=== PATIENT | male | born 1955 | race American Indian/Alaskan Native ===

== ENCOUNTER 2016-12-19 22:33 | Emergency (ER) | payer MEDICARE ==
[2016-12-19 23:05] LABS: Basophils % (Auto) 0.8 % (0.0-1.8); Eosinophils % (Auto) 1.2 % (0.0-4.3); Hematocrit 41.6 % (35.5-45.6); Hemoglobin 13.9 gm/dl (11.8-15.2); Mean Corpuscular HGB Conc 34 % (32-34); Mean Corpuscular Hemoglobin 28 pg (28-32); Mean Corpuscular Volume 85 fl (84-94); Platelet Count 296 K/mm3 (140-440); Red Cell Distribution Width 14.4 % (13.2-15.2); White Blood Count 10.7 K/mm3 (4.5-11.0)
[2016-12-19 23:16] LABS: Calcium 9.2 mg/dL (8.4-10.2); Chloride 103.2 mmol/L (98-107); Potassium 4.6 mmol/L (3.6-5.0)
[2016-12-19] MEDS ORDERED: TYLENOL PO PRN (23:56)
[2016-12-19] MEDS ORDERED: ATIVAN IM PRN (23:56)
[2016-12-19] MEDS ORDERED: HALDOL IM PRN (23:56)
[2016-12-19] MEDS ORDERED: ZOFRAN ODT PO PRN (23:56)
--- NOTE | 2016-12-19 23:57 | Emergency Department Report ---
ED General Adult HPI - General Chief complaint: Psych Stated complaint: SI/HI THOUGHTS Time Seen by Provider: 12/19/16 23:45 Source: patient Mode of arrival: Ambulatory Limitations: No Limitations - History of Present Illness Initial comments: This is a 61-year-old male, presenting to the ER with suicidality. His symptoms are constant. He is not homicidal. He does not have hallucinations, he denies overdose, and denies access to guns and firearms. He has no pain with the exception of chronic right-sided shoulder pain, which has been present for years. The pain is sharp, increases with palpation and range of motion, decreases with rest. No weakness, numbness, ataxia. -: Gradual Severity scale (0 -10): 2 Quality: aching Consistency: intermittent Improves with: rest Worsens with: movement Associated Symptoms: other (suicidality, depression) - Related Data Home Medications Medication Instructions Recorded Confirmed Last Taken Bupropion HCl [buPROPion] 300 mg PO DAILY 12/19/16 12/20/16 1 Day Ago Lisinopril 10 mg PO DAILY 12/19/16 12/20/16 1 Day Ago Allergies Allergy/AdvReac Type Severity Reaction Status Date / Time No Known Allergies Allergy Verified 12/19/16 22:41 ED Review of Systems ROS: Stated complaint: SI/HI THOUGHTS Other details as noted in HPI Constitutional: malaise, weakness ENT: denies: epistaxis Respiratory: denies: cough Cardiovascular: denies: chest pain Gastrointestinal: denies: abdominal pain Genitourinary: denies: dysuria Musculoskeletal: arthralgia, myalgia Skin: denies: lesions Neurological: denies: confusion Psychiatric: depression, suicidal thoughts. denies: homicidal thoughts ED Past Medical Hx - Past Medical History Previous Medical History?: Yes Hx Hypertension: Yes Hx Psychiatric Treatment: Yes (Depression) - Surgical History Past Surgical History?: No - Social History Smoking Status: Never Smoker Substance Use Type: None - Medications Home Medications: Home Medications Medication Instructions Recorded Confirmed Last Taken Type Bupropion HCl [buPROPion] 300 mg PO DAILY 12/19/16 12/20/16 1 Day Ago History Lisinopril 10 mg PO DAILY 12/19/16 12/20/16 1 Day Ago History ED Physical Exam - General Limitations: No Limitations General appearance: alert, in no apparent distress - Head Head exam: Present: atraumatic, normocephalic - Eye Eye exam: Present: normal appearance, PERRL, EOMI, other (visual acuity intact to finger counting, color perception, reading at a close distance). Absent: nystagmus - ENT ENT exam: Present: normal exam, normal orophraynx, mucous membranes moist, normal external ear exam - Neck Neck exam: Present: normal inspection, full ROM. Absent: tenderness, meningismus - Respiratory Respiratory exam: Present: normal lung sounds bilaterally. Absent: respiratory distress, wheezes, rales, rhonchi, stridor, chest wall tenderness, accessory muscle use, decreased breath sounds, prolonged expiratory - Cardiovascular Cardiovascular Exam: Present: regular rate, normal rhythm, normal heart sounds. Absent: bradycardia, tachycardia, irregular rhythm, systolic murmur, diastolic murmur, rubs, gallop - GI/Abdominal GI/Abdominal exam: Present: soft, normal bowel sounds. Absent: distended, tenderness, guarding, rebound, rigid, pulsatile mass - Rectal Rectal exam: Present: deferred - Extremities Exam Extremities exam: Present: normal inspection, full ROM, tenderness (there is reproducible right-sided shoulder tenderness. The compartments are soft. There is full active and passive range of motion of the right shoulder, sensation is intact to the bilateral deltoid, median, radial, ulnar distribution ), normal capillary refill, other (2+ pulses noted in the bilateral upper and lower extremities. Compartments are soft, pelvis is stable, no long bony tenderness). Absent: pedal edema, joint swelling, calf tenderness - Back Exam Back exam: Present: normal inspection, full ROM. Absent: tenderness, CVA tenderness (R), CVA tenderness (L), muscle spasm, paraspinal tenderness, vertebral tenderness - Neurological Exam Neurological exam: Present: alert, oriented X3, normal gait, other (Extraocular movements intact. Tongue midline. No facial droop. Facial sensation intact to light touch in the V1, V2, V3 distribution bilaterally. 5 and 5 strength in 4 extremities.. Sensation is intact to light touch in 4 extremities.). Absent : motor sensory deficit - Psychiatric Psychiatric exam: Present: suicidal ideation - Skin Skin exam: Present: warm, dry, intact, normal color. Absent: rash ED Course Vital Signs 12/19/16 12/20/16 22:45 04:10 Temperature 98.1 F 98.3 F Pulse Rate 77 65 Respiratory 20 16 Rate Blood Pressure 117/72 116/76 [Right] O2 Sat by Pulse 96 96 Oximetry ED Medical Decision Making - Lab Data Result diagrams: 12/19/16 22:46 12/19/16 22:46 Vital Signs 12/19/16 22:45 Temperature 98.1 F Pulse Rate 77 Respiratory 20 Rate Blood Pressure 117/72 [Right] O2 Sat by Pulse 96 Oximetry Lab Results 12/19/16 12/19/16 12/19/16 Range/Units 22:46 22:46 22:46 WBC 10.7 (4.5-11.0) K/mm3 RBC 4.90 (3.65-5.03) M/mm3 Hgb 13.9 (11.8-15.2) gm/dl Hct 41.6 (35.5-45.6) % MCV 85 (84-94) fl MCH 28 (28-32) pg MCHC 34 (32-34) % RDW 14.4 (13.2-15.2) % Plt Count 296 (140-440) K/mm3 Lymph % (Auto) 26.3 (13.4-35.0) % Ector % (Auto) 6.1 (0.0-7.3) % Eos % (Auto) 1.2 (0.0-4.3) % Baso % (Auto) 0.8 (0.0-1.8) % Lymph # 2.8 (1.2-5.4) K/mm3 Ector # 0.7 (0.0-0.8) K/mm3 Eos # 0.1 (0.0-0.4) K/mm3 Baso # 0.1 (0.0-0.1) K/mm3 Seg Neutrophils % 65.6 (40.0-70.0) % Seg Neutrophils # 7.0 (1.8-7.7) K/mm3 Sodium 140 (137-145) mmol/L Potassium 4.6 (3.6-5.0) mmol/L Chloride 103.2 (98-107) mmol/L Carbon Dioxide 22 (22-30) mmol/L Anion Gap 19 mmol/L BUN 15 (9-20) mg/dL Creatinine 1.3 (0.8-1.5) mg/dL Estimated GFR 56 ml/min BUN/Creatinine Ratio 12 % Glucose 152 H (75-100) mg/dL Calcium 9.2 (8.4-10.2) mg/dL Plasma/Serum Alcohol < 0.01 (0-0.07) gm% - Medical Decision Making Differential diagnosis: Suicidality, mood disorder, medical clearance for psychiatric placement, chronic right-sided shoulder pain, arthritis, DJD, Assessment and plan: 61-year-old male with chronic right shoulder pain for years. No neurovascular deficits, no clinical indication of fracture and/or dislocation, this does not present an emergent medical condition, and can be followed up by an outpatient primary care doctor. He is alert and oriented 3, has a GCS of 15, with an anion score of 0, physical exam is unremarkable, patient is placed on a 1013, outpatient medications are continued with the exception of Wellbutrin, at this point in time, there does not appear to be an immediate medical contraindication to psychiatric admission/evaluation and consultation, the crisis he will be involved to further manage the patient. Critical care attestation.: If time is entered above; I have spent that time in minutes in the direct care of this critically ill patient, excluding procedure time. ED Disposition Clinical Impression: Right shoulder pain, Medical clearance for psychiatric admission Disposition: DC/TX-65 PSY HOSP/PSY UNIT Is pt being admited?: No Does the pt Need Aspirin: No Condition: Good
[2016-12-20 01:04] LABS: Urine Drugs of Abuse Note Disclamer
[2016-12-20 01:27] LABS: Bilirubin,Urine NEG (Negative); Blood,Urine NEG (Negative); Ketones,Urine NEG (Negative); Leukocyte Esterase,Urine NEG (Negative); Mucus,Urine 1+ /HPF; Nitrite,Urine NEG (Negative); Protein,Urine <15 mg/dL mg/dL (Negative); RBC,Urine < 1.0 /HPF (0.0-6.0); Urobilinogen,Urine < 2.0 mg/dL (<2.0)
[2016-12-20] MEDS ORDERED: ZESTRIL PO SCH (10:00)
[2016-12-20 10:35] VITALS: BP 99/51
--- NOTE | 2016-12-20 12:22 | Consultation ---
History of Present Illness - Reason for Consult Consult date: 12/20/16 Reason for consult: Mental Health Evaluation Requesting physician: YAHAIRA CHA - Chief Complaint Chief complaint: "I am suicidal" - History of Present Psychiatric Illness This is a 61-year-old AA male presenting to the ER with suicidality. Today patient is calm and cooperative during the assessment. He stated being suicidal because of life stressors (unemployed, illicit drug use, and financial issues). He stated that his main issue is staying off cocaine. He stated that his cocaine addiction has always been a issue for him in his life. He stated over several days his sleep has been erratic because he was "binging" on cocaine. The patient stated, "I have no reason to live." He stated that he attended rehab in the past, but would relapsed once he complete treatment. He does not have a suicide plan and denies prior attempts at suicide. Per the ER note, patient endorse HI's, he denies that now. He denies AVH's, but rate his depression 6/10, with 10 being the worse. He stated feeling withdrawn, sad, and helpless recently because of poor decision making about his life. He denies excessive alcohol consumption (etoh). He stated that he was hospitalized for depression at [facility] in the past. Medications and Allergies Allergies Allergy/AdvReac Type Severity Reaction Status Date / Time No Known Allergies Allergy Verified 12/19/16 22:41 Home Medications Medication Instructions Recorded Confirmed Last Taken Type Bupropion HCl [buPROPion] 300 mg PO DAILY 12/19/16 12/20/16 1 Day Ago History Lisinopril 10 mg PO DAILY 12/19/16 12/20/16 1 Day Ago History Active Meds: Active Medications Acetaminophen (Tylenol) 650 mg PO Q6HR PRN PRN Reason: Pain Haloperidol Lactate (Haldol) 5 mg IM Q6HR PRN PRN Reason: Agitation Lisinopril (Zestril) 10 mg PO DAILY BRIANNE Last Admin: 12/20/16 10:35 Dose: Not Given Lorazepam (Ativan) 2 mg IM Q4HR PRN PRN Reason: Agitation Ondansetron HCl (Zofran Odt) 4 mg PO Q6HR PRN PRN Reason: Nausea Mental Status Exam - Vital signs Last Vital Signs Temp 98.3 F 12/20/16 10:34 Pulse 56 L 12/20/16 10:35 Resp 18 12/20/16 10:34 BP 99/51 12/20/16 10:35 Pulse Ox 97 12/20/16 10:34 - Exam Narrative exam: MSE: Appearance: calm, cooperative Behavior: regular eye contact Speech: regular rate and tone Mood: "depressed" Affect: flat Thought Process: circumstantial Thought Content: denies HI's and VH's Motor Activity: lying in bed Cognition: A/O x3 Insight: variable Judgment: variable Results Result Diagrams: 12/19/16 22:46 12/19/16 22:46 Abnormal lab results 12/19/16 12/19/16 Range/Units 22:46 22:46 Glucose 152 H (75-100) mg/dL Salicylates < 0.3 L (2.8-20.0) mg/dL All other labs normal. Assessment and Plan Assessment and plan: Impression: Historical Dx: Depression. MDD severe type. Alcohol Use DO. Substance Use DO (cocaine). Today patient is calm and cooperative during the assessment. Positive for cocaine DDx: R/O Bipolar DO, Substance Induced Mood DO Recommendation/Plan: Continue 1013 with placement to [facility] today.
== END 2016-12-20 20:54 ==
LOC: ED 22:33 → EEVIPCON 22:33 → ED 12-20 20:54
DX: R45.851 Suicidal ideations (principal); M25.511 Pain in right shoulder; I10 Essential (primary) hypertension; F17.200 Nicotine dependence, unspecified, uncomplicated
CPT/HCPCS: 36415; 80048; 80307; 81001; 82550; 85025; 99285; G0480; 80320

== ENCOUNTER 2017-05-31 22:23 | Emergency (ER) | payer MEDICARE ==
[2017-06-01 00:49] LABS: Basophils # (Auto) 0.1 K/mm3 (0.0-0.1); Eosinophils # (Auto) 0.2 K/mm3 (0.0-0.4); Eosinophils % (Auto) 2.2 % (0.0-4.3); Hemoglobin 13.4 gm/dl (11.8-15.2); Lymphocytes # (Auto) 2.4 K/mm3 (1.2-5.4); Lymphocytes % (Auto) 26.4 % (13.4-35.0); Mean Corpuscular HGB Conc 32 % (32-34); Mean Corpuscular Hemoglobin 28 pg (28-32); Mean Corpuscular Volume 87 fl (84-94); Monocytes # (Auto) 0.7 K/mm3 (0.0-0.8); Monocytes % (Auto) 7.8 % (0.0-7.3); Platelet Count 408 K/mm3 (140-440); Red Blood Count 4.85 M/mm3 (3.65-5.03); Red Cell Distribution Width 15.2 % (13.2-15.2)
[2017-06-01 01:04] LABS: BUN/Creatinine Ratio 10; Blood Urea Nitrogen 11 mg/dL (9-20); Calcium 9.3 mg/dL (8.4-10.2); Hemolysis Index 14
[2017-06-01 02:10] LABS: Bilirubin,Urine NEG (Negative); Blood,Urine NEG (Negative); Color,Urine Straw (Yellow); Protein,Urine <15 mg/dL mg/dL (Negative); Urobilinogen,Urine < 2.0 mg/dL (<2.0)
[2017-06-01 02:14] LABS: Amphetamine Screen,Urine PRESUMPTIVE NEGATIVE; Cannabinoid Screen,Urine PRESUMPTIVE NEGATIVE; Methadone Screen,Urine PRESUMPTIVE NEGATIVE; Opiate Screen,Urine PRESUMPTIVE NEGATIVE
[2017-06-01 02:44] LABS: Benzodiazepines Screen,Urine PRESUMPTIVE POSITIVE; Cocaine Screen,Urine PRESUMPTIVE POSITIVE
[2017-06-01 03:51] VITALS: BP 131/88
--- NOTE | 2017-06-01 04:34 | Emergency Department Report ---
ED Medical Clearance HPI - General Chief complaint: Medical Clearance Stated complaint: MEDICAL CLEARANCE Time Seen by Provider: 06/01/17 02:44 Source: patient Mode of arrival: Ambulatory - History of Present Illness Initial comments: Patient is a 62-year-old Male who is staying at the [facility] after being detoxed [facility]. Patient left today with another resident to go to [facility] and they were gone for several hours in that timeframe the patient in the other resident use cocaine drink alcohol took other pills. Patient was sent here for medical clearance. Patient states he has no complaints except for [place]. He denies any chest pain shortness of breath nausea vomiting fevers chills at this time. Home medications: Home Medications Medication Instructions Recorded Confirmed Last Taken Bupropion HCl [buPROPion] 300 mg PO DAILY 12/19/16 12/20/16 1 Day Ago ~12/19/16 Lisinopril 10 mg PO DAILY 12/19/16 12/20/16 1 Day Ago ~12/19/16 Allergies/Adverse reactions: Allergies Allergy/AdvReac Type Severity Reaction Status Date / Time No Known Allergies Allergy Verified 12/19/16 22:41 ED Review of Systems ROS: Stated complaint: MEDICAL CLEARANCE Other details as noted in HPI Comment: All other systems reviewed and negative ED Past Medical Hx - Past Medical History Previous Medical History?: Yes Hx Hypertension: Yes Hx Psychiatric Treatment: Yes (Depression) Additional medical history: blind R eye - Surgical History Past Surgical History?: No - Social History Smoking Status: Current Every Day Smoker Substance Use Type: Alcohol, Cocaine - Medications Home Medications: Home Medications Medication Instructions Recorded Confirmed Last Taken Type Bupropion HCl [buPROPion] 300 mg PO DAILY 12/19/16 12/20/16 1 Day Ago History ~12/19/16 Lisinopril 10 mg PO DAILY 12/19/16 12/20/16 1 Day Ago History ~12/19/16 ED Physical Exam - General Limitations: No Limitations General appearance: alert, in no apparent distress - Head Head exam: Present: atraumatic, normocephalic - Eye Eye exam: Present: normal appearance - ENT ENT exam: Present: mucous membranes moist - Neck Neck exam: Present: normal inspection - Respiratory Respiratory exam: Present: normal lung sounds bilaterally. Absent: respiratory distress - Cardiovascular Cardiovascular Exam: Present: regular rate, normal rhythm. Absent: systolic murmur, diastolic murmur, rubs, gallop - GI/Abdominal GI/Abdominal exam: Present: soft, normal bowel sounds - Rectal Rectal exam: Present: deferred - Extremities Exam Extremities exam: Present: normal inspection - Back Exam Back exam: Present: normal inspection - Neurological Exam Neurological exam: Present: alert, oriented X3 - Psychiatric Psychiatric exam: Present: normal affect, normal mood - Skin Skin exam: Present: warm, dry, intact, normal color. Absent: rash ED Course Vital Signs 06/01/17 06/01/17 00:18 03:48 Temperature 98.4 F Pulse Rate 120 H 63 Respiratory 18 Rate Blood Pressure 161/100 Blood Pressure 131/88 [Left] O2 Sat by Pulse 98 99 Oximetry ED Medical Decision Making - Lab Data Result diagrams: 06/01/17 00:36 06/01/17 00:36 - Medical Decision Making Patient is medically cleared for return to the [facility] ED Disposition Clinical Impression: Medical clearance for psychiatric admission Disposition: DC-01 TO HOME OR SELFCARE Is pt being admited?: No Does the pt Need Aspirin: No Condition: Stable Additional Instructions: Patient is medically cleared for return to the [facility] Referrals: OZZIE ORNELAS MD [Other] - 3-5 Days
== END 2017-06-01 04:47 | disposition home or self-care (01) ==
LOC: ED 22:23
DX: Z00.8 Encounter for other general examination (principal); F32.9 Major depressive disorder, single episode, unspecified; I10 Essential (primary) hypertension; F17.200 Nicotine dependence, unspecified, uncomplicated; F14.10 Cocaine abuse, uncomplicated
CPT/HCPCS: 36415; 80048; 80307; 81001; 85025; 99283; G0480; 80320

== ENCOUNTER 2018-03-27 11:41 | Emergency (ER) | payer MEDICARE ==
--- NOTE | 2018-03-27 12:04 | Emergency Department Report ---
ED General Adult HPI - General Chief complaint: Pain General Stated complaint: BODY/NECK PAIN Time Seen by Provider: 03/27/18 11:53 Source: patient Mode of arrival: Ambulatory Limitations: No Limitations - History of Present Illness Initial comments: Patient is a 63-year-old male who is here secondary to generalized body aches. Patient states that his lower back is Rosanne been aching for approximately a month and a half and he also has had about 2-3 weeks of neck pain as well. Patient seen here once before for torticollis. Patient states pain in his neck and lower back or dyspnea aching and sometimes he has pain in his arms and legs secondary to his neck and back pain. Patient denies any trauma or falls. Patient states he has not had any fevers chills bowel or bladder dysfunction chest pain or neck stiffness. Patient states the pain in his neck and back are worse when he's trying to stand. - Related Data Home Medications Medication Instructions Recorded Confirmed Last Taken Lisinopril 10 mg PO DAILY 12/19/16 12/20/16 1 Day Ago ~12/19/16 buPROPion HCl [buPROPion] 300 mg PO DAILY 12/19/16 12/20/16 1 Day Ago ~12/19/16 Previous Rx's Medication Instructions Recorded Last Taken Type Ibuprofen [Motrin] 800 mg PO Q8HR PRN #20 tablet 02/04/18 Unknown Rx methOCARBAMOL [Robaxin TAB] 500 mg PO Q6H PRN #15 tablet 02/04/18 Unknown Rx traMADol [Ultram] 50 mg PO Q6HR PRN #12 tablet 02/04/18 Unknown Rx HYDROcodone/APAP 5-325 [[place] 1 each PO Q4HR PRN #12 tablet 03/27/18 Unknown Rx 5/325] methOCARBAMOL [Robaxin TAB] 500 mg PO Q6H PRN #15 tablet 03/27/18 Unknown Rx Allergies Allergy/AdvReac Type Severity Reaction Status Date / Time No Known Allergies Allergy Verified 03/27/18 11:50 ED Review of Systems ROS: Stated complaint: BODY/NECK PAIN Other details as noted in HPI Comment: All other systems reviewed and negative ED Past Medical Hx - Past Medical History Previous Medical History?: Yes Hx Hypertension: Yes Hx Psychiatric Treatment: Yes (Depression) Additional medical history: blind R eye, aortic aneurysm - Surgical History Past Surgical History?: Yes Additional Surgical History: anal abscess, shoulder - Social History Smoking Status: Current Every Day Smoker Substance Use Type: None - Medications Home Medications: Home Medications Medication Instructions Recorded Confirmed Last Taken Type Lisinopril 10 mg PO DAILY 12/19/16 12/20/16 1 Day Ago History ~12/19/16 buPROPion HCl [buPROPion] 300 mg PO DAILY 12/19/16 12/20/16 1 Day Ago History ~12/19/16 Ibuprofen [Motrin] 800 mg PO Q8HR PRN #20 tablet 02/04/18 Unknown Rx methOCARBAMOL [Robaxin TAB] 500 mg PO Q6H PRN #15 tablet 02/04/18 Unknown Rx traMADol [Ultram] 50 mg PO Q6HR PRN #12 tablet 02/04/18 Unknown Rx HYDROcodone/APAP 5-325 [[place] 1 each PO Q4HR PRN #12 tablet 03/27/18 Unknown Rx 5/325] methOCARBAMOL [Robaxin TAB] 500 mg PO Q6H PRN #15 tablet 03/27/18 Unknown Rx ED Physical Exam - General Limitations: No Limitations General appearance: alert, in no apparent distress - Head Head exam: Present: atraumatic, normocephalic - Eye Eye exam: Present: normal appearance - ENT ENT exam: Present: mucous membranes moist - Neck Neck exam: Present: normal inspection - Respiratory Respiratory exam: Present: normal lung sounds bilaterally. Absent: respiratory distress, wheezes, rales, rhonchi - Cardiovascular Cardiovascular Exam: Present: regular rate, normal rhythm. Absent: systolic murmur, diastolic murmur, rubs, gallop - GI/Abdominal GI/Abdominal exam: Present: soft, normal bowel sounds. Absent: distended, tenderness, guarding, rebound - Rectal Rectal exam: Present: deferred - Extremities Exam Extremities exam: Present: normal inspection - Back Exam Back exam: Present: normal inspection - Neurological Exam Neurological exam: Present: alert, oriented X3 - Psychiatric Psychiatric exam: Present: normal affect, normal mood - Skin Skin exam: Present: warm, dry, intact, normal color. Absent: rash ED Course Vital Signs 03/27/18 11:45 Temperature 97.4 F L Pulse Rate 65 Respiratory 16 Rate Blood Pressure 123/97 O2 Sat by Pulse 95 Oximetry ED Medical Decision Making - Medical Decision Making Patient likely with some arthritic pains in his neck and lower back with some secondary radiculopathy. Patient referred to orthopedics. Patient be disch arged home with meds for symptomatically relief. Critical care attestation.: If time is entered above; I have spent that time in minutes in the direct care of this critically ill patient, excluding procedure time. ED Disposition Clinical Impression: Radiculopathy Qualifiers: Spinal region: unspecified Qualified Code(s): M54.10 - Radiculopathy, site unspecified Disposition: TO HOME OR SELFCARE Is pt being admited?: No Does the pt Need Aspirin: No Condition: Stable Instructions: Lumbar Radiculopathy (ED), Cervical Radiculopathy (ED) Referrals: LISA DAVIS MD [Staff Physician] - 3-5 Days Time of Disposition: 12:03
== END 2018-03-27 12:25 | disposition home or self-care (01) ==
LOC: ED 11:41
CPT/HCPCS: 99281

== ENCOUNTER 2018-10-05 10:09 | Inpatient (IN) | payer MEDICARE ==
[2018-10-05 10:58] LABS: Basophils # (Auto) 0.1 K/mm3 (0.0-0.1); Basophils % (Auto) 1.1 % (0.0-1.8); Eosinophils # (Auto) 0.3 K/mm3 (0.0-0.4); Hematocrit 45.6 % (35.5-45.6); Hemoglobin 14.7 gm/dl (11.8-15.2); Lymphocytes # (Auto) 3.6 K/mm3 (1.2-5.4); Lymphocytes % (Auto) 36.6 % (13.4-35.0); Mean Corpuscular HGB Conc 32 % (32-34); Mean Corpuscular Volume 87 fl (84-94); Monocytes # (Auto) 0.9 K/mm3 (0.0-0.8); Monocytes % (Auto) 8.9 % (0.0-7.3); Platelet Count 355 K/mm3 (140-440); Red Blood Count 5.25 M/mm3 (3.65-5.03); Red Cell Distribution Width 14.9 % (13.2-15.2)
[2018-10-05 11:10] LABS: BUN/Creatinine Ratio 12; Blood Urea Nitrogen 16 mg/dL (9-20); Calcium 9.1 mg/dL (8.4-10.2); Hemolysis Index 11
--- NOTE | 2018-10-05 11:12 | XRay Report ---
Examination: Left hand radiograph, 3 views, 10/05/2018 Clinical information: Left hand pain for 3 weeks. No history of trauma Comparison: None. Findings: There is no evidence of acute bony fracture or significant soft tissue swelling of the left hand. Signer Name: Yuly Benavides MD Signed: 10/05/2018 11:08 AM Workstation Name: [id number]
[2018-10-05 11:29] LABS: Free T4 (Free Thyroxine) 1.37 ng/dL (0.76-1.46)
[2018-10-05] MEDS ORDERED: TORADOL IM ONE (11:57)
--- NOTE | 2018-10-05 12:07 | Emergency Department Report ---
ED Extremity Problem HPI - General Chief complaint: Extremity Problem,Nontraumatic Stated complaint: (L) HAND PAIN Time Seen by Provider: 10/05/18 11:47 Source: patient, old records reviewed Mode of arrival: Ambulatory Limitations: No Limitations - History of Present Illness Initial comments: 63-year-old male with a past medical history of hypertension, depression, anxiety, substance abuse, and a thoracic aortic aneurysm presents to the Hospital complaining of pain to fingers of left hand 3 weeks. Pain is constant, aching, worse with palpation and movement related 10/10 in intensity. No alleviating factors reported. No recent trauma, fever, rash, insect bites, redness, or warmth. He denies any other arthralgias or joint pain. Patient was noted to have a heart rate in the 20s and had a EKG shows sinus bradycardia rate 49 with multiple PVCs. He cannot recall his medication list. He states he does have a thoracic aortic aneurysm that is at 4.2 cm monitored by his physicians at [place]. He denies any chest pain, shortness of breath, lightheadedness, or syncope. Currently enrolled at the outpatient psychiatric program at [place] where he is being treated for anxiety and depression. His medical record reveals cocaine abuse. Patient states he has not use any drugs in 2 months. at 2:23 we were finally able to obtain pt's current med list Trazodone 100 mg daily at bedtime Citalopram 20 mg daily Lipitor 10 mg daily Norvasc 5 mg daily pt is not on any beta blockers - Related Data Home Medications Medication Instructions Recorded Confirmed Last Taken AtorvaSTATin [Lipitor] 10 mg PO DAILY 10/05/18 10/05/18 Unknown Citalopram 20 mg PO DAILY 10/05/18 10/05/18 Unknown Norvasc 5 mg PO DAILY 10/05/18 10/05/18 Unknown traZODone 100 mg PO HS 10/05/18 10/05/18 Unknown Allergies Allergy/AdvReac Type Severity Reaction Status Date / Time No Known Allergies Allergy Verified 03/27/18 11:50 ED Review of Systems ROS: Stated complaint: (L) HAND PAIN Other details as noted in HPI Comment: All other systems reviewed and negative ED Past Medical Hx - Past Medical History Previous Medical History?: Yes Hx Hypertension: Yes Hx Psychiatric Treatment: Yes (Depression) Additional medical history: blind R eye, thoracic aortic aneurysm - Surgical History Past Surgical History?: Yes Additional Surgical History: anal abscess, shoulder - Social History Smoking Status: Current Every Day Smoker Substance Use Type: None - Medications Home Medications: Home Medications Medication Instructions Recorded Confirmed Last Taken Type AtorvaSTATin [Lipitor] 10 mg PO DAILY 10/05/18 10/05/18 Unknown History Citalopram 20 mg PO DAILY 10/05/18 10/05/18 Unknown History Norvasc 5 mg PO DAILY 10/05/18 10/05/18 Unknown History traZODone 100 mg PO HS 10/05/18 10/05/18 Unknown History ED Physical Exam - General Limitations: No Limitations - Other Other exam information: General: No limitations, patient is alert in no acute distress Head exam: Atraumatic, normocephalic Eyes exam: Normal appearance ENT: Moist mucous membrane Neck exam: Normal inspection, full range of motion, no meningismus nontender Respiratory exam: Clear to auscultation bilateral, no wheezes, rales, crackles Cardiovascular: Bradycardic regular rhythm Abdomen: Soft, nondistended, and nontender, with normal bowel sounds, no rebound, or guarding Extremity: She doesn't have any significant swelling, deformity, erythema, or warmth to the left hand. He has tenderness to palpation of all his fingers starting at the MTP joint extending distally. His left thumb and palmar hand are not tender to palpation. He has limited flexion of fingers secondary to pain. Back: Normal Inspection, full range of motion, no tenderness Neurologic: Alert, oriented x3, cranial nerves intact, no motor or sensory deficit Psychiatric: normal affect, normal mood Skin: Warm, dry, intact ED Course Vital Signs 10/05/18 10/05/18 10/05/18 10:15 12:15 13:31 Temperature 97.6 F Pulse Rate 28 L 48 L 48 L Respiratory 16 18 17 Rate Blood Pressure 116/53 134/84 146/87 [Right] O2 Sat by Pulse 98 96 97 Oximetry - Consultations Consultation #1: 10/05/18 14:38 case d/w Dr vila cardiology, ekg's reviewed. recommends admission for tele monitoring and will consult. ED Medical Decision Making - Lab Data Result diagrams: 10/05/18 10:39 10/05/18 10:39 Lab Results 07/28/19 07/28/19 07/28/19 Range/Units 10:39 10:39 10:39 WBC 9.8 (4.5-11.0) K/mm3 RBC 5.25 H (3.65-5.03) M/mm3 Hgb 14.7 (11.8-15.2) gm/dl Hct 45.6 (35.5-45.6) % MCV 87 (84-94) fl MCH 28 (28-32) pg MCHC 32 (32-34) % RDW 14.9 (13.2-15.2) % Plt Count 355 (140-440) K/mm3 Lymph % (Auto) 36.6 H (13.4-35.0) % [place] % (Auto) 8.9 H (0.0-7.3) % Eos % (Auto) 3.0 (0.0-4.3) % Baso % (Auto) 1.1 (0.0-1.8) % Lymph # 3.6 (1.2-5.4) K/mm3 [place] # 0.9 H (0.0-0.8) K/mm3 Eos # 0.3 (0.0-0.4) K/mm3 Baso # 0.1 (0.0-0.1) K/mm3 Seg Neutrophils % 50.4 (40.0-70.0) % Seg Neutrophils # 5.0 (1.8-7.7) K/mm3 Sodium 138 (137-145) mmol/L Potassium 5.0 (3.6-5.0) mmol/L Chloride 103.3 (98-107) mmol/L Carbon Dioxide 26 (22-30) mmol/L Anion Gap 14 mmol/L BUN 16 (9-20) mg/dL Creatinine 1.3 (0.8-1.5) mg/dL Estimated GFR > 60 ml/min BUN/Creatinine Ratio 12 % Glucose 107 H (75-100) mg/dL Calcium 9.1 (8.4-10.2) mg/dL Magnesium 2.20 (1.7-2.3) mg/dL Total Creatine Kinase (55-170) units/L Troponin T < 0.010 (0.00-0.029) ng/mL TSH 1.040 (0.270-4.200) mlU/mL Free T4 1.37 (0.76-1.46) ng/dL Urine Opiates Screen Urine Methadone Screen Ur Barbiturates Screen Ur Phencyclidine Scrn Ur Amphetamines Screen U Benzodiazepines Scrn Urine Cocaine Screen U Marijuana (THC) Screen Drugs of Abuse Note 10/05/18 10/05/18 Range/Units 10:39 12:53 WBC (4.5-11.0) K/mm3 RBC (3.65-5.03) M/mm3 Hgb (11.8-15.2) gm/dl Hct (35.5-45.6) % MCV (84-94) fl MCH (28-32) pg MCHC (32-34) % RDW (13.2-15.2) % Plt Count (140-440) K/mm3 Lymph % (Auto) (13.4-35.0) % [place] % (Auto) (0.0-7.3) % Eos % (Auto) (0.0-4.3) % Baso % (Auto) (0.0-1.8) % Lymph # (1.2-5.4) K/mm3 [place] # (0.0-0.8) K/mm3 Eos # (0.0-0.4) K/mm3 Baso # (0.0-0.1) K/mm3 Seg Neutrophils % (40.0-70.0) % Seg Neutrophils # (1.8-7.7) K/mm3 Sodium (137-145) mmol/L Potassium (3.6-5.0) mmol/L Chloride (98-107) mmol/L Carbon Dioxide (22-30) mmol/L Anion Gap mmol/L BUN (9-20) mg/dL Creatinine (0.8-1.5) mg/dL Estimated GFR ml/min BUN/Creatinine Ratio % Glucose (75-100) mg/dL Calcium (8.4-10.2) mg/dL Magnesium (1.7-2.3) mg/dL Total Creatine Kinase 81 (55-170) units/L Troponin T (0.00-0.029) ng/mL TSH (0.270-4.200) mlU/mL Free T4 (0.76-1.46) ng/dL Urine Opiates Screen Presumptive negative Urine Methadone Screen Presumptive negative Ur Barbiturates Screen Presumptive negative Ur Phencyclidine Scrn Presumptive negative Ur Amphetamines Screen Presumptive negative U Benzodiazepines Scrn Presumptive negative Urine Cocaine Screen Presumptive negative U Marijuana (THC) Screen Presumptive negative Drugs of Abuse Note Disclamer - EKG Data -: EKG Interpreted by Me (sinus lu with multiple pvc) EKG shows normal: sinus rhythm, axis (qrs 38), intervals (pr 220), QRS complexes (qrsd 111), ST-T waves (no stemi, PVC) Rate: normal - EKG Data 10/05/18 14:15 repeat ekg at 14:08 shows sinus lu rate 44, pr 251 (1st degree av block with LAD). nostemi. no pvc's on repeat - Radiology Data Radiology results: report reviewed Examination: Left hand radiograph, 3 views, 10/05/2018 Clinical information: Left hand pain for 3 weeks. No history of trauma Comparison: None. Findings: There is no evidence of acute bony fracture or significant soft tissue swelling of the left hand. - Medical Decision Making pt has bradycardia and pvc's on initial ekg. previous hr in the 60's Electrolytes and UDS are normal. Patient has not any beta jessica celexa can cause lu cardia/prolonged qt trazdone can cause prolonged qt Case discussed with social sciences lecturer Patient has ongoing arthralgias of the left hand no Signs of acute infection tx with toradol in ed pt will be admitted for cardiac monitoring - Differential Diagnosis overmedication, substance abuse, arthritis, infection, fracture Critical Care Time: No Critical care attestation.: If time is entered above; I have spent that time in minutes in the direct care of this critically ill patient, excluding procedure time. ED Disposition Clinical Impression: Bradycardia, PVCs (premature ventricular contractions), Left hand pain Disposition: OP ADMIT IP TO THIS HOSP Is pt being admited?: Yes Condition: Stable Time of Disposition: 14:55 (Dr ignacio/hosp)
[2018-10-05 13:12] LABS: Amphetamine Screen,Urine PRESUMPTIVE NEGATIVE; Benzodiazepines Screen,Urine PRESUMPTIVE NEGATIVE; Cannabinoid Screen,Urine PRESUMPTIVE NEGATIVE; Cocaine Screen,Urine PRESUMPTIVE NEGATIVE; Methadone Screen,Urine PRESUMPTIVE NEGATIVE; Opiate Screen,Urine PRESUMPTIVE NEGATIVE
--- NOTE | 2018-10-05 14:57 | History and Physical Report ---
History of Present Illness Chief complaint: My left arm is hurting, and it feels numb sometimes History of present illness: 63 YO Male with HTN, Anxiety, Substance Abuse, TAA (4.2cm) presents to ED for evaluation. Pt states that he has experienced a "tingling pain' and numbness to his LUE over the past 3 weeks, with persistent symptoms over the past 1 week. Pain is now constant, aching, worse with palpation and movement, as well as work related activity. Pt states pain is 10/10 in intensity. Pt transported to [facility] via private vehicle. Pt acknowledges decreased exercise tolerance, and dypsnea with exertion. Pt denies fever, chills, CP, Palpitations, NVD, Syncope, Trauma, Productive cough, dizziness, vertigo, shortness of breath, unilateral leg swelling, calf pain, prolonged travel/immobility, individual/family history of DVT/PE/Bleeding/Blood Clotting Disorders, or recent ill contacts. Pt currently enrolled in [facility] outpatient psychiatric program for treatment of anxiety and depression. Pt seen and evaluated in ED and found to have symptomatic bradycardia with heart rate in the 40's, and well as symptoms suggestive of Diastolic CHF. No prior admission for review. All listed medication reconciled at time of admission. Cardiology consulted in ED. PT admitted to telemetry. Past History Past Medical History: hypertension, hyperlipidemia, other (TAA, Nicotine Dependence, Polysubstance Abuse, Depression, Anxiety) Past Surgical History: Other (Anal Abscess,Shoulder surgery) Social history: , smoking, IV drug use Family history: hypertension Medications and Allergies Allergies Allergy/AdvReac Type Severity Reaction Status Date / Time No Known Allergies Allergy Verified 03/27/18 11:50 Home Medications Medication Instructions Recorded Confirmed Last Taken Type AtorvaSTATin [Lipitor] 10 mg PO DAILY 10/05/18 10/05/18 Unknown History Citalopram 20 mg PO DAILY 10/05/18 10/05/18 Unknown History Norvasc 5 mg PO DAILY 10/05/18 10/05/18 Unknown History traZODone 100 mg PO HS 10/05/18 10/05/18 Unknown History Review of Systems Constitutional: no weight loss, no weight gain, no fever, no chills Ears, nose, mouth and throat: no ear pain, no ear discharge, no tinnitis, no decreased hearing, no nose pain, no nasal congestion Cardiovascular: shortness of breath, dyspnea on exertion, decreased exercise tolerance, no chest pain, no orthopnea, no syncope, no lightheadedness Respiratory: no cough, no cough with sputum, no excessive sputum Gastrointestinal: no nausea, no vomiting, no diarrhea, no constipation, no change in bowel habits Genitourinary Male: no hematuria, no flank pain, no discharge, no urinary frequency, no urinary hesitancy, no genital pain Rectal: no pain, no incontinence, no bleeding Musculoskeletal: neck pain, arm numbness/tingling, no neck stiffness, no shooting arm pain, no low back pain, no shooting leg pain, no hot joints, no morning stiffness, no muscle weakness, no muscle cramps, no frequent falls, no fractures, no loss of height Integumentary: no rash, no pruritis, no redness, no sores, no wounds, no jaundice Neurological: no transient paralysis, no paralysis, no weakness, no parathesias, no tingling, no syncope, no tremors, no ataxia, no lack of coordination Psychiatric: no anxiety, no memory loss, no change in sleep habits, no sleep disturbances, no insomnia, no hypersomnia, no change in appetite, no change in libido Endocrine: no cold intolerance, no heat intolerance, no polyphagia, no excessive thirst, no polydipsia, no polyuria Hematologic/Lymphatic: no easy bruising, no easy bleeding, no lymphedema Allergic/Immunologic: no urticaria, no allergic rhinitis, no wheezing, no persistent infections, no anaphylaxis, no angioedema Exam - Constitutional Vitals: Temp Pulse Resp BP Pulse Ox 97.6 F 48 L 17 146/87 97 10/05/18 10:15 10/05/18 13:31 10/05/18 13:31 10/05/18 13:31 10/05/18 13:31 General appearance: Present: mild distress - EENT Eyes: Present: PERRL ENT: hearing intact, clear oral mucosa - Neck Neck: Present: supple, normal ROM - Respiratory Respiratory effort: normal Respiratory: bilateral: CTA - Cardiovascular Rhythm: other (bradycardia) Heart Sounds: Present: S1 & S2. Absent: rub, click - Extremities Extremities: pulses symmetrical, No edema Peripheral Pulses: within normal limits - Abdominal General gastrointestinal: Present: soft, non-tender, non-distended, normal bowel sounds Male genitourinary: Present: normal - Integumentary Integumentary: Present: clear, warm, dry - Musculoskeletal Musculoskeletal: gait normal, strength equal bilaterally - Psychiatric Psychiatric: appropriate mood/affect, intact judgment & insight - Neurologic Neurologic: CNII-XII intact, moves all extremities Results - Labs CBC & Chem 7: 10/05/18 10:39 10/05/18 10:39 Labs: Abnormal lab results 10/05/18 10/05/18 Range/Units 10:39 10:39 RBC 5.25 H (3.65-5.03) M/mm3 Lymph % (Auto) 36.6 H (13.4-35.0) % [place] % (Auto) 8.9 H (0.0-7.3) % [place] # 0.9 H (0.0-0.8) K/mm3 Glucose 107 H (75-100) mg/dL Assessment and Plan - Patient Problems (1) Diastolic CHF Current Visit: Yes Status: Acute Qualifiers: Heart failure chronicity: acute Qualified Code(s): I50.31 - Acute diastolic (congestive) heart failure Plan to address problem: Admit to telemetry, Echo, thyroid panel, BNP, Magnesium level, blood pressure control, strict I/O, daily weight, chest x ray, supplemental oxygen, pulse oximetry. (2) Sick sinus syndrome Current Visit: Yes Status: Acute Plan to address problem: Admit to telemetry, cardiology consulted, serial cardiac enzymes, Echo, supportive care. (3) Cervical radiculopathy Current Visit: Yes Status: Acute Plan to address problem: X ray neck, Physical therapy, outpatient Ortho F/U care. (4) Thoracic aortic aneurysm (TAA) Current Visit: Yes Status: Acute Qualifiers: Presence of rupture: without rupture Qualified Code(s): I71.2 - Thoracic aortic aneurysm, without rupture Plan to address problem: CTA chest, supportive care, blood pressure control. CTA chest pending at time of admission. (5) Bradycardia Current Visit: Yes Status: Acute Plan to address problem: Admit to telemetry, Atropine at bedside, for symptomatic bradycardia with heart rate less than 45 (6) DVT prophylaxis Current Visit: Yes Status: Acute Plan to address problem: SCD to BLE while in bed,
[2018-10-05] MEDS ORDERED: PROVENTIL IH PRN (15:07)
[2018-10-05] MEDS ORDERED: ZOFRAN IV PRN (15:07)
[2018-10-05] MEDS ORDERED: TYLENOL PO PRN (15:07)
[2018-10-05] MEDS ORDERED: SODIUM CHLORIDE FLUSH SYRINGE 10 ML IV PRN ×2 (15:07)
[2018-10-05] MEDS ORDERED: ATROPINE 0.1% (CARDIAC) IV ONE (16:00)
--- NOTE | 2018-10-05 16:16 | XRay Report ---
CLINICAL DATA: neck pain TECHNICAL DATA: AP, lateral, and odontoid views of the cervical spine were obtained. FINDINGS: Bone density is normal. Intervertebral disc space narrowing with osteophyte formation is present at C 3-4, C4-5, C5-6, and C6-7 . The posterior elements are intact. No evidence of a fracture or disloca tion. IMPRESSION: Degenerative changes as described. MR would be of benefit for further evaluation Signer Name: Young Whipple MD Signed: 10/05/2018 4:12 PM Workstation Name: [id number]
--- NOTE | 2018-10-05 16:43 | Consultation ---
<JUAN ALBERTO CASSIDY - Last Filed: 10/05/18 17:23> History of Present Illness Consult date: 10/05/18 Requesting physician: REINIER MARIE Consult reason: bradycardia History of present illness: Mr. Mohr is a 63 y/o male with a medical history significant for hypertension, depression, anxiety, substance abuse and a thoracic aortic aneurysm who presented to the ED on 10/05/18 from a psychiatric facility with left hand pain x3 weeks. He is previously unknown to our practice. We are consulted for bradycardia, which has thus far been asymptomatic. The patient's heart rate was initially in the 20s and an EKG revealed sinus bradycardia with PVCs and a rate of 49. He received a dose of atropine. He reports that he does experience intermittent asymptomatic bradycardia, but his heart rate normally stays above 50. Additionally, he has been taking Norvasc for hypertension "for a while." He denies CP, SOB, N/V and dizziness, but does have 1+ edema to right leg. An echocardiogram in 2018 at [facility] revealed an EF of 60 to 65 percent, mild concentric LVH, grade 1 diastolic dysfunction, mild TR, mild MR and a mildly dilated LA. The patient also reports a thoracic aortic aneurysm measuring 4.2 cm that is monitored at [place]. Past History Past Medical History: hypertension, other (depression, anxiety and thoracic aortic aneurysm) Past Surgical History: Other (shoulder ) Medications and Allergies Allergies Allergy/AdvReac Type Severity Reaction Status Date / Time lisinopril AdvReac Mild cough Verified 10/05/18 17:31 Home Medications Medication Instructions Recorded Confirmed Last Taken Type AtorvaSTATin [Lipitor] 10 mg PO DAILY 10/05/18 10/05/18 Unknown History Citalopram 20 mg PO DAILY 10/05/18 10/05/18 Unknown History Norvasc 5 mg PO DAILY 10/05/18 10/05/18 Unknown History traZODone 100 mg PO HS 10/05/18 10/05/18 Unknown History Active Meds: Active Medications Acetaminophen (Tylenol) 650 mg PO Q4H PRN PRN Reason: Pain MILD(1-3)/Fever >100.5/RAMIREZ Albuterol (Proventil) 2.5 mg IH Q4HRT PRN PRN Reason: Shortness Of Breath Atorvastatin Calcium (Lipitor) 10 mg PO DAILY [facility]RIANNE Citalopram Hydrobromide (Celexa) 20 mg PO QDAY [facility] Famotidine (Pepcid) 20 mg PO BID [facility] Ondansetron HCl (Zofran) 4 mg IV Q8H PRN PRN Reason: Nausea And Vomiting Sodium Chloride (Sodium Chloride Flush Syringe 10 Ml) 10 ml IV BID BRIANNE Sodium Chloride (Sodium Chloride Flush Syringe 10 Ml) 10 ml IV PRN PRN PRN Reason: LINE FLUSH Sodium Chloride (Sodium Chloride Flush Syringe 10 Ml) 10 ml IV PRN PRN PRN Reason: LINE FLUSH Trazodone HCl (Desyrel) 100 mg PO QHS [facility] Review of Systems All systems: negative Eyes: right: loss of vision (d/t glaucoma) Cardiovascular: edema (right leg ) Physical Examination Last Vital Signs Temp 97.6 F 10/05/18 10:15 Pulse 60 10/05/18 15:25 Resp 18 10/05/18 15:25 BP 146/68 10/05/18 15:25 Pulse Ox 98 10/05/18 15:25 General appearance: no acute distress HEENT: Positive: Other (blind in right eye) Neck: Positive: neck supple Cardiac: Positive: Regular Rhythm, Bradycardia Neuro: Positive: Grossly Intact Abdomen: Positive: Unremarkable Extremities: Present: edema, +1 Edema (RLE) Results 10/05/18 10:39 10/05/18 10:39 CBC 10/05/18 Range/Units 10:39 WBC 9.8 (4.5-11.0) K/mm3 RBC 5.25 H (3.65-5.03) M/mm3 Hgb 14.7 (11.8-15.2) gm/dl Hct 45.6 (35.5-45.6) % Plt Count 355 (140-440) K/mm3 Lymph # 3.6 (1.2-5.4) K/mm3 [place] # 0.9 H (0.0-0.8) K/mm3 Eos # 0.3 (0.0-0.4) K/mm3 Baso # 0.1 (0.0-0.1) K/mm3 Comprehensive Metabolic Panel 10/05/18 Range/Units 10:39 Sodium 138 (137-145) mmol/L Potassium 5.0 (3.6-5.0) mmol/L Chloride 103.3 (98-107) mmol/L Carbon Dioxide 26 (22-30) mmol/L BUN 16 (9-20) mg/dL Creatinine 1.3 (0.8-1.5) mg/dL Glucose 107 H (75-100) mg/dL Calcium 9.1 (8.4-10.2) mg/dL - Imaging and Cardiology Stress echo: other (from 2018 - images not yet reviewed) Echo: report reviewed EKG: report reviewed (Sinus bradycardia with PVCs) EKG interpretations - Telemetry EKG Rhythm: Sinus Bradycardia Assessment and Plan Mr. Streeter is a 63 y/o male who presented to the ED with left hand pain x3 weeks and was noted to be in sinus bradycardia with HRs initially in the 20s. He has a history of reported intermittent bradycardia, hypertension, a thoracic aortic aneurysm of 4.2 cm, depression and anxiety. He has been taking Norvasc for his blood pressure. An echocardiogram is pending. CT to measure thoracic AA pending as well. Will discontinue Norvasc and start hydralazine for hypertension - will avoid ACEi and ARB at this time d/t mildly elevated creatinine. Continue to monitor on telemetry. Further recommendations pending hospital course. - Patient Problems (1) Sinus bradycardia Current Visit: Yes Status: Acute (2) Left hand pain Current Visit: Yes Status: Acute (3) Sick sinus syndrome Current Visit: Yes Status: Suspected (4) Thoracic aortic aneurysm (TAA) Current Visit: Yes Status: Chronic Qualifiers: Presence of rupture: without rupture Qualified Code(s): I71.2 - Thoracic aortic aneurysm, without rupture (5) Anxiety and depression Current Visit: Yes Status: Chronic (6) (HFpEF) heart failure with preserved ejection fraction Current Visit: Yes Status: Suspected <MARJ YOUNG - Last Filed: 10/06/18 10:11> Medications and Allergies Active Meds: Active Medications Acetaminophen (Tylenol) 650 mg PO Q4H PRN PRN Reason: Pain MILD(1-3)/Fever >100.5/RAMIREZ Albuterol (Proventil) 2.5 mg IH Q4HRT PRN PRN Reason: Shortness Of Breath Atorvastatin Calcium (Lipitor) 10 mg PO DAILY [facility]RI[facility]NE Citalopram Hydrobromide (Celexa) 20 mg PO QDAY [facility] Famotidine (Pepcid) 20 mg PO BID [facility]RIANNE Last Admin: 10/05/18 21:50 Dose: 20 mg Documented by: Hydralazine HCl (Apresoline) 25 mg PO Q8HR [facility] Last Admin: 10/06/18 05:38 Dose: Not Given Documented by: Ondansetron HCl (Zofran) 4 mg IV Q8H PRN PRN Reason: Nausea And Vomiting Sodium Chloride (Sodium Chloride Flush Syringe 10 Ml) 10 ml IV BID [facility] Last Admin: 10/05/18 21:50 Dose: 10 ml Documented by: Sodium Chloride (Sodium Chloride Flush Syringe 10 Ml) 10 ml IV PRN PRN PRN Reason: LINE FLUSH Trazodone HCl (Desyrel) 100 mg PO QHS [facility] Last Admin: 10/05/18 21:50 Dose: 100 mg Documented by: Physical Examination Vital Signs Temp Pulse Resp BP Pulse Ox 97.6 F 28 L 16 116/53 98 10/05/18 10:15 10/05/18 10:15 10/05/18 10:15 10/05/18 10:15 10/05/18 10:15 Results 10/05/18 10:39 10/06/18 05:04 Cardiac Enzymes 10/06/18 Range/Units 05:04 AST 13 (5-40) units/L CBC 10/05/18 Range/Units 10:39 WBC 9.8 (4.5-11.0) K/mm3 RBC 5.25 H (3.65-5.03) M/mm3 Hgb 14.7 (11.8-15.2) gm/dl Hct 45.6 (35.5-45.6) % Plt Count 355 (140-440) K/mm3 Lymph # 3.6 (1.2-5.4) K/mm3 [place] # 0.9 H (0.0-0.8) K/mm3 Eos # 0.3 (0.0-0.4) K/mm3 Baso # 0.1 (0.0-0.1) K/mm3 Comprehensive Metabolic Panel 10/05/18 10/06/18 Range/Units 10:39 05:04 Sodium 138 139 (137-145) mmol/L Potassium 5.0 4.2 (3.6-5.0) mmol/L Chloride 103.3 105.6 (98-107) mmol/L Carbon Dioxide 26 24 (22-30) mmol/L BUN 16 20 (9-20) mg/dL Creatinine 1.3 1.4 (0.8-1.5) mg/dL Glucose 107 H 109 H (75-100) mg/dL Calcium 9.1 8.8 (8.4-10.2) mg/dL AST 13 (5-40) units/L ALT 12 (7-56) units/L Alkaline Phosphatase 89 (35-129) units/L Total Protein 6.6 (6.3-8.2) g/dL Albumin 3.7 L (3.9-5) g/dL Assessment and Plan Pt seen and examined. HR was documented in the 40s. No avb or pauses noted. Also noted to be chronic. No sxs. Watch on tele check tte f/u with [facility] ct surgery for thoracic aa.
--- NOTE | 2018-10-05 17:28 | Cat Scan Report ---
CTA CHEST WITH IV CONTRAST INDICATION / CLINICAL INFORMATION: pain. TECHNIQUE: Axial CT images were obtained through the chest after injection of IV contrast. 3 plane MIP and/or 3D reconstructions were produced. All CT scans at this location are performed using CT dose reduction f or ALARA by means of automated exposure control. COMPARISON: None available. FINDINGS: PULMONARY ARTERIES: No pulmonary emboli. THORACIC AORTA: Ascending thoracic aorta at the level of the opal measures 4.58 x 4.56. The descend ing thoracic aorta at the level of the opal measures 3.49 x 3.56 cm HEART: No significant abnormality. CORONARY ARTERIES: No significant calcification. PLEURA: No pleural effusion. No pneumothorax. LYMPH NODES: No significant adenopathy. LUNGS: No acute air space or interstitial disease. ADDITIONAL FINDINGS: None. UPPER ABDOMEN: No acute findings. SKELETAL STRUCTURES: No significant osseous abnormality. IMPRESSION: 1. No CT evidence for pulmonary embolism. 2. Ectatic ascending thoracic aorta as noted Signer Name: Young Whipple MD Signed: 10/05/2018 5:23 PM Workstation Name: [id number]
[2018-10-05] MEDS: PEPCID PO SCH (21:50)
[2018-10-05] MEDS: APRESOLINE PO SCH (21:50)
[2018-10-05] MEDS: DESYREL PO SCH (21:50)
[2018-10-05] MEDS: SODIUM CHLORIDE FLUSH SYRINGE 10 ML IV SCH (21:50)
[2018-10-05] MEDS ORDERED: NON-FORMULARY (Trazodone 100 MG) PO SCH (22:00)
[2018-10-06] MEDS: APRESOLINE PO SCH ×3 (05:38→22:17)
[2018-10-06 05:58] LABS: Alanine Aminotransferase 12 units/L (7-56); Albumin 3.7 g/dL (3.9-5); BUN/Creatinine Ratio 14; Blood Urea Nitrogen 20 mg/dL (9-20); Calcium 8.8 mg/dL (8.4-10.2); Hemolysis Index 7
[2018-10-06] MEDS ORDERED: CITALOPRAM 20 MG PO SCH (10:00)
--- NOTE | 2018-10-06 10:45 | Progress Note ---
Assessment and Plan Pt with asymptomatic suspected chronic sinus bradycardia. Thyroid profile WNL. BPs stable. Pt with no current cardiac complaints. Agree with hydralazine for BP control. Preliminary review of echo reveals EF 55-60%, small pericardial effusion, no gross abnormalities. Chest CTA reviewed - TAA measuring 4.5cm. Pt reports that his TAA has been followed by [facility] regularly for the past several years, he was last seen 7 months ago at [facility] at told TAA was measuring 4.2cm. Regular follow up with cardiothoracic surgery recommended. Recommend pt follow up with either [facility] or [facility] (Dr. Chris Gibbons [phone]) within 2 weeks of hospital discharge. Pt verbalizes understanding and states he would like to call and make appt with his preferred CT surgery team after he sees his PCP in a few days for post-hospital follow-up. The patient has been seen in conjunction with Dr. Juan M Fuentes who agrees with the assessment and plan of care. - Patient Problems (1) Sinus bradycardia Current Visit: Yes Status: Chronic Plan to address problem: chronic, asymptomatic. (2) PVCs (premature ventricular contractions) Current Visit: Yes Status: Acute (3) Thoracic aortic aneurysm (TAA) Current Visit: Yes Status: Resolved Qualifiers: Presence of rupture: without rupture Qualified Code(s): I71.2 - Thoracic aortic aneurysm, without rupture (4) HTN (hypertension) Current Visit: Yes Status: Chronic (5) Left hand pain Current Visit: Yes Status: Acute Subjective Date of service: 10/06/18 Principal diagnosis: sinus bradycardia Interval history: pt resting in bed, no current complaints. tele reviewed - in SB (HR low 37bpm) with freq PVCs and bout of bigeminy overnight, no pauses or AVB noted. 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) Neck: Positive: neck supple Cardiac: Positive: Regular Rhythm, S1/S2, Bradycardia Lungs: Positive: Decreased Breath Sounds Neuro: Positive: Grossly Intact Abdomen: Positive: Unremarkable - Labs and Meds Cardiac Enzymes 10/06/18 Range/Units 05:04 AST 13 (5-40) units/L CBC 10/05/18 Range/Units 10:39 WBC 9.8 (4.5-11.0) K/mm3 RBC 5.25 H (3.65-5.03) M/mm3 Hgb 14.7 (11.8-15.2) gm/dl Hct 45.6 (35.5-45.6) % Plt Count 355 (140-440) K/mm3 Lymph # 3.6 (1.2-5.4) K/mm3 [place] # 0.9 H (0.0-0.8) K/mm3 Eos # 0.3 (0.0-0.4) K/mm3 Baso # 0.1 (0.0-0.1) K/mm3 Comprehensive Metabolic Panel 10/05/18 10/06/18 Range/Units 10:39 05:04 Sodium 138 139 (137-145) mmol/L Potassium 5.0 4.2 (3.6-5.0) mmol/L Chloride 103.3 105.6 (98-107) mmol/L Carbon Dioxide 26 24 (22-30) mmol/L BUN 16 20 (9-20) mg/dL Creatinine 1.3 1.4 (0.8-1.5) mg/dL Glucose 107 H 109 H (75-100) mg/dL Calcium 9.1 8.8 (8.4-10.2) mg/dL AST 13 (5-40) units/L ALT 12 (7-56) units/L Alkaline Phosphatase 89 (35-129) units/L Total Protein 6.6 (6.3-8.2) g/dL Albumin 3.7 L (3.9-5) g/dL - Imaging and Cardiology EKG: report reviewed (Sinus bradycardia with PVCs) Echo: pending - Telemetry EKG Rhythm: Sinus Bradycardia
[2018-10-06] MEDS: celeXA PO SCH (11:48)
[2018-10-06] MEDS: PEPCID PO SCH ×2 (11:48→22:18)
[2018-10-06] MEDS: SODIUM CHLORIDE FLUSH SYRINGE 10 ML IV SCH ×2 (11:53→22:19)
[2018-10-06] MEDS ORDERED: NORCO 5/325 PO PRN (14:27)
--- NOTE | 2018-10-06 14:38 | Progress Note ---
Subjective Date of service: 10/06/18 Principal diagnosis: sinus bradycardia Interval history: A/P: Sinus bradycardia Asymptomatic Cardiology note reviewed and appreciated Continue per cardiology recommendation Thoracic aortic aneurysm CTA chest results reviewed Await follow-up by cardiology All questions from patient regarding the aneurysm answered Hypertension Fair Hyperlipidemia Continue statin Left hand pain Unclear etiology Rule out osteoarthritis versus rheumatoid arthritis No evidence of cellulitis Check uric acid level, sedimentation rate and rheumatoid factor Restart on NSAIDs and when necessary [place] 5/325 Subjective Patient is alert and oriented and not in any acute distress Complains of moderately severe pain in the distal left hand for the past 2 weeks He states he is unable to flex his fingers He denies any history of gout He denies fever, chills, chest pain or shortness of breath 12 point review of systems is essentially negative except as stated above Objective - Constitutional Vitals: Vital Signs - 12hr 10/06/18 10/06/18 10/06/18 02:55 04:11 05:38 Temperature 97.7 F Pulse Rate 45 L 41 L 40 L Respiratory 18 Rate Blood Pressure 106/69 106/69 O2 Sat by Pulse 91 Oximetry 10/06/18 10/06/18 10/06/18 07:43 12:44 14:27 Temperature 97.7 F 98.0 F Pulse Rate 47 L 47 L 47 L Respiratory 16 16 Rate Blood Pressure 113/55 129/76 129/76 O2 Sat by Pulse 96 97 Oximetry General appearance: Present: no acute distress - EENT Eyes: PERRL, EOM intact ENT: hearing intact, clear oral mucosa - Neck Neck: supple, normal ROM, no masses or JVD - Respiratory Respiratory effort: normal Respiratory: bilateral: CTA - Cardiovascular Rhythm: regular Heart Sounds: Present: S1 & S2 Extremities: No edema - Gastrointestinal General gastrointestinal: Present: soft, non-tender Rectal Exam: deferred - Integumentary Integumentary: clear - Musculoskeletal Musculoskeletal: strength equal bilaterally, other (left hand no obvious s welling or rash, moderately tender especially and painful to flexion of the MCP joints) - Neurologic Neurologic: CNII-XII intact, no focal deficits - Psychiatric Psychiatric: appropriate mood/affect - Labs CBC & Chem 7: 10/05/18 10:39 10/06/18 05:04 Labs: Abnormal lab results 10/06/18 Range/Units 05:04 Glucose 109 H (75-100) mg/dL Albumin 3.7 L (3.9-5) g/dL
[2018-10-06] MEDS: IBUPROFEN PO SCH ×2 (18:33→22:18)
[2018-10-06] MEDS: DESYREL PO SCH (22:17)
[2018-10-07] MEDS: APRESOLINE PO SCH (06:07)
[2018-10-07] MEDS: IBUPROFEN PO SCH (06:07)
[2018-10-07] MEDS: PEPCID PO SCH (09:43)
[2018-10-07] MEDS: SODIUM CHLORIDE FLUSH SYRINGE 10 ML IV SCH (09:44)
[2018-10-07] MEDS: celeXA PO SCH (09:44)
[2018-10-07 12:35] VITALS: BP 120/72
--- NOTE | 2018-10-07 14:02 | Discharge Summary ---
Providers - Providers Date of Admission: 10/05/18 15:43 Date of discharge: 10/07/18 Attending physician: AGUSTO DAVIS 10/05/18 Consult to Cardiac Rehabilitation [CONS] Routine Reason For Exam: Phase I 10/05/18 14:55 Consult to Physician [CONS] Urgent Comment: Consulting Provider: MARJ YOUNG Physician Instructions: Reason For Exam: bradycardia 10/05/18 16:59 Physical Therapy Evaluation and Treat [CONS] Routine Comment: Reason For Exam: Cervical radiculopathy 10/06/18 16:39 Occupational Therapy Evaluate and Treat [CONS] Routine Comment: Reason For Exam: recommended by physical therapist [facility] St[facility] Hospital course: Patient is a 63 yo man with a history of hypertension, depression, anxiety, substance abuse and a thoracic aortic aneurysm who presented to the ED on 10/05/18 from a psychiatric facility with left hand pain x3 weeks. Patient is currently enrolled in [facility] outpatient psychiatric program for treatment of anxiety and depression. In the ED, he was found to have symptomatic bradycardia with heart rate in the 40's, and well as symptoms suggestive of Diastolic CHF. Patient was seen and treated by Cardiology. Patient is at his baseline and wants to go home. He denies SI. Discharge Diagnoses: -Acute Diastolic heart failure -Sinus bradycardia -Thoracic aortic aneurysm -Hypertension -Left hand pains and swelling, helped by Motrin 600mg, he was counseled/warned about using motrin and worsening Aneursym, -Premature Ventricular Contractions -Dyslipidemia [facility] Time spent for discharge: 35 minutes Core Measure Documentation - Palliative Care Palliative Care/ Comfort Measures: Not Applicable - Core Measures Any of the following diagnoses?: heart failure - VTE Discharge Requirements Deep Vein Thrombosis/Pulmonary Embolism Present on Admission: No Has pt received <5 days of overlap therapy or INR<2.0: No Anticoagulant overlap therapy prescribed at discharge: No Contraindication No Overlap Therapy order at DC: Not Indicated - Heart Failure Discharge Requirements JEAN/ARB for LVSD if EF <40%: Not Applicable Beta jessica at discharge: No Reason for no beta jessica on DC: Bradycardia Exam - Physical Exam Narrative exam: Gen: WDWN, NAD, Awake, Alert, Orientated HEENT: NCAT, EOMI, PERRL, OP Clear Neck: supple, no adenopathy, no thyromegaly, no JVD CVS/Heart: Regular bradycardia normal S1S2, pulses present bilaterally Chest/Lungs: CTA B, Symmetrical chest expansion, good air entry bilaterally GI/Abdomen: soft, NTND, good bowel sounds, no guarding or rebound /Bladder: no suprapubic tenderness, no CVA or paraspinal tenderness Extermity/Skin: no c/c/e, no obvious rash MSK: FROM x 4 Neuro: CN 2-12 grossly intact, no new focal deficits Psych: calm - Constitutional Vitals: Temp Pulse Resp BP Pulse Ox 97.6 F 28 L 16 120/72 96 10/07/18 12:33 10/07/18 12:33 10/07/18 12:33 10/07/18 12:33 10/07/18 12:33 Plan Activity: other (no strenous activity unless cleared by PCP) Diet: low salt Follow up with: MESERET LI MD [Referring] - 14 [facility] SAMY [Primary Care Provider] - 3-5 Days MARJ YOUNG MD [Staff Physician] - 7 Days Prescriptions: hydrALAZINE [Apresoline TAB] 25 mg PO TID #90 tablet HYDROcodone/APAP 5-325 [[place] 5-325 mg TAB] 1 each PO Q8H PRN #15 tablet PRN Reason: Pain , Severe (7-10) Norvasc 5 mg PO DAILY #30
== END 2018-10-07 15:53 | DRG 291 ==
LOC: ED 10:09 → 4A 15:43
PROVIDERS: ADMIT Internal Medicine; ATTEND Internal Medicine
DX: I11.0 Hypertensive heart disease with heart failure (principal); I50.31 Acute diastolic (congestive) heart failure; R00.1 Bradycardia, unspecified; F32.9 Major depressive disorder, single episode, unspecified; F41.9 Anxiety disorder, unspecified; I71.2 Thoracic aortic aneurysm, without rupture; E78.5 Hyperlipidemia, unspecified; M79.642 Pain in left hand; M54.12 Radiculopathy, cervical region; F17.200 Nicotine dependence, unspecified, uncomplicated; Z79.899 Other long term (current) drug therapy; Z82.49 Family history of ischemic heart disease and other diseases of the circulatory system
CPT/HCPCS: 36415; 71275; 72040; 80048; 80053; 80307; 82550; 82962; 83735; 83880; 84439; 84443; 84484; 84550; 85025; 85652; 86618; 93005; 93010; 93306; 96372; 96374; G0378; A9270-GY; J0461; J1885; Q9967